=== PATIENT | male | born 1955 | race African-American/Black ===

== ENCOUNTER 2017-05-27 14:28 | Emergency (ER) | payer MEDICAID, OTHER ==
[~2017-05-27] VITALS: Ht 175.3 cm; Wt 158.8 kg
[2017-05-27 14:58] VITALS: BP 150/68
[2017-05-27 16:08] LABS: Hematocrit 45.9 % (41.0-53.0); Hemoglobin 14.4 g/dL (13.5-17.5); Mean Corpuscular Hemoglobin 29.8 pg (28.0-32.0); Mean Corpuscular Hgb Conc. 31.4 g/dL (32.0-36.0); Mean Corpuscular Volume 94.9 fL (80.0-100.0); Platelet Count (auto) 175 10^3/uL (140-450); Red Blood Cells 4.83 10^6/uL (4.5-5.90); Red Cell Distribution Width 17.3 % (11.8-14.3); White Blood Cell 13.9 10^3/uL (4.4-10.8)
[2017-05-27 16:20] LABS: Albumin 3.5 g/dL (3.4-5.0); Calcium 9.2 mg/dL (8.5-10.1); Magnesium 1.8 mg/dL (1.6-2.6); Potassium 4.2 mmol/L (3.5-5.1)
[2017-05-27 16:22] LABS: BUN/Creatinine Ratio 12.8
[2017-05-27 16:24] LABS: Bilirubin, Total 0.5 mg/dL (0.2-1.0); Total Protein 7.9 g/dL (6.4-8.2)
[2017-05-27 16:45] LABS: Basophils % (manual) 0 (0.0-2.0); Blast Cells 0; Eosinophils % (manual) 0 (0-7); Metamyelocytes % 0; Myelocytes % 0; Promyelocytes % 0; Reactive Lymphocytes 0
[2017-05-27 18:05] LABS: Band Neutrophils % (manual) 27; Lymphocytes % (manual) 8 (10.0-50.0); Monocytes % (manual) 8 (0-12)
== END 2017-05-28 00:56 | disposition left against medical advice (07) ==
LOC: ER 14:38
DX: R11.2 Nausea with vomiting, unspecified (principal); R10.9 Unspecified abdominal pain; Z53.21 Procedure and treatment not carried out due to patient leaving prior to being seen by health care provider
CPT/HCPCS: 36415; 80053; 82150; 83690; 83735; 85007; 85027; 93005

== ENCOUNTER 2018-10-23 09:11 | Inpatient (IN) | payer MEDICAID | END 2018-10-24 17:50 | disposition home or self-care (01) | LOC: ER 09:11 → TELE-EAST 13:15 | DX: K80.20 Calculus of gallbladder without cholecystitis without obstruction (principal); I13.0 Hypertensive heart and chronic kidney disease with heart failure and stage 1 through stage 4 chronic kidney disease, or unspecified chronic kidney disease; I50.9 Heart failure, unspecified; N18.3 Chronic kidney disease, stage 3 (moderate); K86.1 Other chronic pancreatitis ==

== ENCOUNTER 2018-10-29 14:36 | Inpatient (IN) | payer MEDICAID ==
[~2018-10-29] VITALS: Ht 180.3 cm; Wt 156.9 kg
[~2018-10-29 14:36] MED LIST: ACET250T3 PO; ALL300T PO; AMLO5TAB13 PO; ASP81EC PO; ATOR10TA52 PO; CALC0.25 PO; CHLO25TA22 PO; CHOL20007 PO; DOCU100T15 PO; FINA5TAB4 PO; FURO40TA4 PO; HYDR50TA15 PO; INSR100KIT SUBCUT; INSUINJ2 SC; IPRIH INH; ISOS20TA56 PO; MOME100A INH; OMEP20TA PO; TAMS1CAP25 PO
[2018-10-29] MEDS ORDERED: SODIUM CHLORIDE 0.9% 500 ML IVB ONE (14:55)
[2018-10-29] MEDS ORDERED: MORPHINE SULFATE 4 MG/ML SYR/VIAL IV ONE (15:00)
[2018-10-29] MEDS ORDERED: FAMOTIDINE (10MG/ML) 2ML VL IV ONE (15:00)
[2018-10-29] MEDS ORDERED: PROCHLORPERAZINE EDISYLATE 5 MG/ML 2ML VIAL IV ONE (15:00)
[2018-10-29 15:12] LABS: Basophils # (auto) 0.1 uL; Basophils % (auto) 0.6 % (0.0-2.0); Eosinophils # (auto) 0.1 uL; Hematocrit 45.3 % (41.0-53.0); Hemoglobin 14.4 g/dL (13.5-17.5); Lymphocytes # (auto) 1.8 uL; Lymphocytes % (auto) 14.7 % (10.0-50.0); Mean Corpuscular Hemoglobin 28.4 pg (28.0-32.0); Mean Corpuscular Hgb Conc. 31.8 g/dL (32.0-36.0); Mean Corpuscular Volume 89.3 fL (80.0-100.0); Monocytes % (auto) 8.2 % (0.0-12.0); Neutrophils % (auto) 75.5 % (37.0-80.0); Nucleated Red Blood Cells % 0.1 %; Platelet Count (auto) 234 10^3/uL (140-450); Red Blood Cells 5.08 10^6/uL (4.5-5.90); Red Cell Distribution Width 18.6 % (11.8-14.3)
[2018-10-29 15:43] LABS: Alanine Aminotransferase 102 U/L (16-61); Albumin 3.4 g/dL (3.4-5.0); Anion Gap 10 (5-15); Aspartate Aminotransferase 133 U/L (15-37); BUN/Creatinine Ratio 15.3; Blood Urea Nitrogen 29 mg/dL (7-18); Calcium 9.2 mg/dL (8.5-10.1); Carbon Dioxide 25 mmol/L (21-32); Chloride 100 mmol/L (98-107); GFR African American 46 mL/min; GFR Non-African American 38 mL/min; Glucose 139 mg/dL (74-106); Lipase 69 U/L (73-393); Sodium 135 mmol/L (136-145)
[2018-10-29 15:46] LABS: Alkaline Phosphatase 209 U/L (45-117); Bilirubin, Total 1.8 mg/dL (0.2-1.0); Total Protein 7.8 g/dL (6.4-8.2)
[2018-10-29 15:56] LABS: Potassium 2.9 mmol/L (3.5-5.1)
[2018-10-29] MEDS ORDERED: POTASSIUM CHL 20MEQ/100ML 100 ML IV ONE (17:00)
[2018-10-29] MEDS ORDERED: PROMETHAZINE HCL 25 MG/ML 1ML IV PRN (18:00)
[2018-10-29] MEDS ORDERED: MORPHINE SULF INJ 2 MG/ML SYRINGE 1ML IV PRN (18:00)
[2018-10-29] MEDS ORDERED: cefTRIAXone 1GM/50ML D5W 50 ML IV ONE (18:00)
[2018-10-29] MEDS: SODIUM CHLORIDE 0.9% 1,000 ML IV SCH (18:00)
[2018-10-29] MEDS ORDERED: NITROGLYCERIN 0.4 MG SL TAB SL PRN (18:00)
[2018-10-29] MEDS ORDERED: DEXTROSE (50%) 50ML SYRG IV PRN (18:00)
[2018-10-29] MEDS: ACCU-CHEK COMFORT CURVE STRIP VI SCH (18:07)
[2018-10-29] MEDS: InsuLIN REG 1unit/0.01ml Soln (100units/ml) SC SCH (18:09)
--- NOTE | 2018-10-29 19:43 | NUR ---
MS admit from ER YANIRADANIELLE admitted to [facility] after hand off tool received. Patient oriented to primary RN, unit, room, bed, and unit policies regarding patient care and visiting hours. Patient weighed by bedscale and encouraged to call if they need something. All questions and concerns addressed, patient verbalized understanding. Patient complained of mild pain to abdomen tolerable at this time.
--- NOTE | 2018-10-29 19:45 | NUR ---
Home medication reviewed/confirmed by patient.
[2018-10-29] MEDS: MORPHINE SULFATE 4 MG/ML SYR/VIAL IV PRN (22:25)
[2018-10-29] MEDS: FAMOTIDINE (10MG/ML) 2ML VL IV SCH (22:25)
[2018-10-29] MEDS: metroNIDAZOLE 500MG/100ML 100 ML IV SCH (22:25)
--- NOTE | 2018-10-29 22:25 | NUR ---
Patient complained of severe pain to mid epigastric area of the abdomen. Will administer pain medication as ordered.
--- NOTE | 2018-10-30 | NUR ---
Blood sugar level taken at 185mg/dl 3 units administered per ss. Patient with no s/s of hyperglycemia, will continue to monitor.
--- NOTE | 2018-10-30 | NUR ---
Patient instructed nurse to call spouse, Cuca at [phone] password provided with patient's authorization. Patient update given. Spouse verbalized understanding and appreciation.
[2018-10-30] MEDS: InsuLIN REG 1unit/0.01ml Soln (100units/ml) SC SCH ×4 (00:11→17:42)
[2018-10-30] MEDS: ACCU-CHEK COMFORT CURVE STRIP VI SCH ×4 (00:11→17:42)
--- NOTE | 2018-10-30 00:15 | NUR ---
MRSA nares Patient last hospitalization just a week ago. MRSA nares swab obtained and sent to lab via bullet.
[2018-10-30] MEDS: SODIUM CHLORIDE 0.9% 1,000 ML IV SCH (04:35)
--- NOTE | 2018-10-30 04:50 | NUR ---
UA specimen bottle at bedside. Instruction given to call nurse when sample available. Pt verbalized understanding.
[2018-10-30 05:00] VITALS: BP 139/71
[2018-10-30] MEDS: metroNIDAZOLE 500MG/100ML 100 ML IV SCH ×3 (05:19→21:44)
[2018-10-30] MEDS: MORPHINE SULFATE 4 MG/ML SYR/VIAL IV PRN ×2 (05:20→22:50)
[2018-10-30 06:05] LABS: Basophils # (auto) 0 uL; Basophils % (auto) 0.2 % (0.0-2.0); Eosinophils # (auto) 0.1 uL; Eosinophils % (auto) 1.1 % (0.0-7.0); Hematocrit 44.6 % (41.0-53.0); Hemoglobin 14.4 g/dL (13.5-17.5); Lymphocytes # (auto) 1.6 uL; Lymphocytes % (auto) 14.5 % (10.0-50.0); Mean Corpuscular Hemoglobin 28.8 pg (28.0-32.0); Mean Corpuscular Hgb Conc. 32.2 g/dL (32.0-36.0); Mean Corpuscular Volume 89.3 fL (80.0-100.0); Monocytes # (auto) 1.3 uL; Monocytes % (auto) 12.4 % (0.0-12.0); Neutrophils # (auto) 7.7 uL; Neutrophils % (auto) 71.8 % (37.0-80.0); Nucleated Red Blood Cells % 0.1 %; Platelet Count (auto) 217 10^3/uL (140-450); Red Blood Cells 4.99 10^6/uL (4.5-5.90); Red Cell Distribution Width 18.7 % (11.8-14.3); White Blood Cell 10.8 10^3/uL (4.4-10.8)
[2018-10-30 06:22] LABS: Amylase 76 U/L (25-115); Lipase 144 U/L (73-393); Potassium 3.2 mmol/L (3.5-5.1)
[2018-10-30 06:37] LABS: Albumin 3.1 g/dL (3.4-5.0); BUN/Creatinine Ratio 13.6; Bilirubin, Total 4.1 mg/dL (0.2-1.0); Total Protein 7.3 g/dL (6.4-8.2)
[2018-10-30 07:59] LABS: Urine WBC None Seen /hpf (0 - 3)
[2018-10-30 08:04] VITALS: BP 151/76
[2018-10-30 08:37] LABS: Urine Bacteria NONE SEEN /hpf (None Seen); Urine Blood Negative /uL (Negative); Urine Hyaline Cast FEW /lpf (0 - 2); Urine Specific Gravity 1.013 (1.001-1.035)
[2018-10-30] MEDS: FAMOTIDINE (10MG/ML) 2ML VL IV SCH ×2 (09:34→21:44)
[2018-10-30] MEDS: cefTRIAXone 1GM/50ML D5W 50 ML IV SCH (09:34)
--- NOTE | 2018-10-30 10:30 | NUR ---
Opening Shift Note Assumed care of patient, awake and alert. No S/S of distress/SOB or pain. Instructed on POC and to call for assist PRN, will continue to monitor for changes Q1hr and PRN.
--- NOTE | 2018-10-30 11:01 | NUR ---
Dr. Becker at bedside discussed with patient and made aware of patient is too big and cannot get in to ERCP machine. Dr. Dex mckeon.
--- NOTE | 2018-10-30 11:10 | NUR ---
Received a call from Dr. Kowalski with new orders noted and carried out.
[2018-10-30 13:00] VITALS: BP 158/74
[2018-10-30] MEDS: D5W/LACTATED RINGERS 1,000 ML IV SCH ×2 (13:31→23:11)
--- NOTE | 2018-10-30 14:30 | NUR ---
Marichuy HOANG (cardio) at bedside.
--- NOTE | 2018-10-30 14:48 | NUR ---
Dr. Kowalski at bedside.
[2018-10-30 17:07] VITALS: BP 156/73
--- NOTE | 2018-10-30 20:00 | NUR ---
open note assumed care of pt. upon entering room, pt awake and alert. no complaints of pain, no distress noted. pt updated on plan of care. no additional questions at this time. pt call light in reach, encouraged to call as needed. will round q1hr and prn.
[2018-10-30 22:00] VITALS: BP 156/66
[2018-10-30] MEDS ORDERED: HYDR50TA15 PO (22:29)
[2018-10-30] MEDS ORDERED: AMLO5TAB13 PO (22:29)
[2018-10-30] MEDS ORDERED: FURO40TA PO (22:29)
--- NOTE | 2018-10-30 22:30 | NUR ---
paged hospitalist NATALYA ontiveros notified of pt increased BP and lack of medication despite med rec indicating associated HTN meds being taken at home. NATALYA Ontiveros gave orders to restart norvasc 10mg qd, lasix 40mg bid, hydralazine 50mg bid; give one dose hydralazine now.
[2018-10-30] MEDS: hydrALAZINE HCL 25 MG TAB PO SCH (22:50)
[2018-10-31] MEDS: MORPHINE SULFATE 4 MG/ML SYR/VIAL IV PRN ×2 (00:19→09:34)
[2018-10-31] MEDS: InsuLIN REG 1unit/0.01ml Soln (100units/ml) SC SCH ×4 (00:20→17:31)
[2018-10-31] MEDS: ACCU-CHEK COMFORT CURVE STRIP VI SCH ×4 (00:20→17:31)
[2018-10-31 05:00] VITALS: BP 138/67
[2018-10-31] MEDS ORDERED: FUROSEMIDE 20 MG TAB PO SCH (06:00)
[2018-10-31] MEDS: metroNIDAZOLE 500MG/100ML 100 ML IV SCH ×3 (06:02→21:49)
[2018-10-31 06:44] LABS: Albumin 2.9 g/dL (3.4-5.0)
[2018-10-31 06:48] LABS: Bilirubin, Direct 4.6 mg/dL (0-0.2); Bilirubin, Total 5.3 mg/dL (0.2-1.0)
[2018-10-31 09:00] VITALS: BP 124/79
[2018-10-31] MEDS: D5W/LACTATED RINGERS 1,000 ML IV SCH (09:00)
[2018-10-31] MEDS: FAMOTIDINE (10MG/ML) 2ML VL IV SCH (09:32)
[2018-10-31] MEDS: cefTRIAXone 1GM/50ML D5W 50 ML IV SCH (09:32)
[2018-10-31] MEDS: hydrALAZINE HCL 25 MG TAB PO SCH ×2 (09:33→21:50)
[2018-10-31] MEDS: amLODIPine BESYLATE 5 MG TAB PO SCH (09:33)
[2018-10-31] MEDS ORDERED: POTASSIUM EFFERVESENT TAB 25 MEQ PO ONE (10:30)
[2018-10-31 11:00] LABS: Phosphorus 2.1 mg/dL (2.5-4.90); Uric Acid 7.7 mg/dL (3.5-7.2)
[2018-10-31] MEDS: FINASTERIDE 5 MG TAB PO SCH (11:17)
[2018-10-31] MEDS: ISOSORBIDE DINITRATE 10 MG TAB PO SCH (11:17)
[2018-10-31 13:00] VITALS: BP 128/62
[2018-10-31] MEDS: TAMSULOSIN HYDROCHLORIDE 0.4 MG CAP PO SCH (18:00)
[2018-10-31] MEDS: INSULIN LANTUS (GLARGINE) 1 /0.01ml (100units/ml) SC SCH (21:50)
[2018-10-31 22:00] VITALS: BP 152/76
[2018-11-01] MEDS: ACCU-CHEK COMFORT CURVE STRIP VI SCH ×4 (00:09→17:37)
[2018-11-01] MEDS: InsuLIN REG 1unit/0.01ml Soln (100units/ml) SC SCH ×4 (00:09→17:37)
[2018-11-01] MEDS: MORPHINE SULFATE 4 MG/ML SYR/VIAL IV PRN ×3 (05:31→15:57)
[2018-11-01 05:32] VITALS: BP 152/74
[2018-11-01] MEDS: metroNIDAZOLE 500MG/100ML 100 ML IV SCH ×3 (05:36→21:59)
[2018-11-01 06:35] LABS: Calcium 8.5 mg/dL (8.5-10.1)
[2018-11-01] MEDS: INSULIN LANTUS (GLARGINE) 1 /0.01ml (100units/ml) SC SCH ×2 (06:35→22:10)
[2018-11-01 06:38] LABS: Albumin 2.7 g/dL (3.4-5.0); BUN/Creatinine Ratio 10.6
[2018-11-01 06:40] LABS: Bilirubin, Total 4.4 mg/dL (0.2-1.0); Total Protein 6.9 g/dL (6.4-8.2)
[2018-11-01 09:00] VITALS: BP 153/81
--- NOTE | 2018-11-01 09:00 | NUR ---
Opening Shift Note Assumed care of patient, awake and alert, oriented x4 and verbally responsive. Respiratory even and unlabored. No S/S of distress/SOB or pain. Skin is warm and dry to touch, no s/s of hyperglycemia and hypoglycemia noted. Instructed on POC and to call for assist PRN, will continue to monitor for changes Q1hr and PRN.
[2018-11-01] MEDS: hydrALAZINE HCL 25 MG TAB PO SCH ×2 (10:17→22:00)
[2018-11-01] MEDS: amLODIPine BESYLATE 5 MG TAB PO SCH (10:17)
[2018-11-01] MEDS: FUROSEMIDE 40 MG TAB PO SCH (10:17)
[2018-11-01] MEDS: FINASTERIDE 5 MG TAB PO SCH (10:18)
[2018-11-01] MEDS: ISOSORBIDE DINITRATE 10 MG TAB PO SCH (10:18)
[2018-11-01] MEDS: cefTRIAXone 1GM/50ML D5W 50 ML IV SCH (10:18)
[2018-11-01] MEDS ORDERED: D5W 5% IV ONE (10:45)
[2018-11-01] MEDS ORDERED: POTASSIUM PHOSPHATE IV ONE (10:45)
--- NOTE | 2018-11-01 11:42 | NUR ---
Nutrition Assessment Notes please see attached link for complete assessment Est. Needs ABW [id number] kcal (17-20 kcal/kgBW), 92-115 gms pro (0.8-1.0 gms/kgABW). Will continue to monitor pertinent labs and reassess nutrient need prn Addendum: 11/01/18 at [address] Sánchez RD Amended: Links added.
[2018-11-01 13:00] VITALS: BP 131/71
[2018-11-01] MEDS: POTASSIUM CHL 20 Meq TABLET PO SCH ×2 (14:18→18:36)
--- NOTE | 2018-11-01 16:00 | NUR ---
PT REPORTS THAT HE IS DOING WELL AND DOES NOT NEED P.T. INTERVENTION.
[2018-11-01] MEDS: TAMSULOSIN HYDROCHLORIDE 0.4 MG CAP PO SCH (18:35)
--- NOTE | 2018-11-01 20:00 | NUR ---
OPENING SHIFT NOTE: PATIENT RESTING IN BED WITH NO CURRENT COMPLAINTS OF PAIN OR DISCOMFORT. HE IS ON ROOM AIR AND AMBULATORY WITHOUT ASSIST. HE'S AWARE OF HIS PROCEDURE TOMORROW AND THAT HE IS NPO AFTER MIDNIGHT. WILL CONTINUE TO MONITOR.
[2018-11-01 22:04] VITALS: BP 142/79
[2018-11-02] MEDS: ACCU-CHEK COMFORT CURVE STRIP VI SCH ×4 (00:16→17:50)
[2018-11-02] MEDS: MORPHINE SULFATE 4 MG/ML SYR/VIAL IV PRN ×2 (03:07→09:41)
[2018-11-02 05:38] VITALS: BP 138/80
[2018-11-02] MEDS: metroNIDAZOLE 500MG/100ML 100 ML IV SCH ×3 (05:51→21:40)
[2018-11-02] MEDS: InsuLIN REG 1unit/0.01ml Soln (100units/ml) SC SCH ×4 (06:00→17:51)
[2018-11-02 06:13] LABS: Basophils # (auto) 0.2 uL; Basophils % (auto) 1.6 % (0.0-2.0); Eosinophils # (auto) 0.2 uL; Eosinophils % (auto) 1.8 % (0.0-7.0); Hematocrit 40.4 % (41.0-53.0); Hemoglobin 13.2 g/dL (13.5-17.5); Lymphocytes # (auto) 1.4 uL; Lymphocytes % (auto) 10.2 % (10.0-50.0); Mean Corpuscular Hemoglobin 28.7 pg (28.0-32.0); Mean Corpuscular Hgb Conc. 32.6 g/dL (32.0-36.0); Mean Corpuscular Volume 87.9 fL (80.0-100.0); Monocytes # (auto) 0.9 uL; Monocytes % (auto) 6.6 % (0.0-12.0); Neutrophils # (auto) 10.5 uL; Neutrophils % (auto) 79.8 % (37.0-80.0); Platelet Count (auto) 183 10^3/uL (140-450); Red Blood Cells 4.59 10^6/uL (4.5-5.90); Red Cell Distribution Width 18.6 % (11.8-14.3); White Blood Cell 13.2 10^3/uL (4.4-10.8)
[2018-11-02] MEDS: INSULIN LANTUS (GLARGINE) 1 /0.01ml (100units/ml) SC SCH ×2 (06:27→22:06)
[2018-11-02 06:36] LABS: Albumin 2.6 g/dL (3.4-5.0); Calcium 8.5 mg/dL (8.5-10.1); Potassium 3.4 mmol/L (3.5-5.1)
[2018-11-02 06:40] LABS: INR 1.03 (0.9-1.15); Partial Thromboplastin Time 32.3 sec (23.64-32.05)
[2018-11-02 06:41] LABS: BUN/Creatinine Ratio 11.7; Total Protein 6.8 g/dL (6.4-8.2)
[2018-11-02 07:27] VITALS: BP 140/72
[2018-11-02 08:02] VITALS: BP 140/72
[2018-11-02] MEDS: cefTRIAXone 1GM/50ML D5W 50 ML IV SCH (09:41)
[2018-11-02] MEDS: amLODIPine BESYLATE 5 MG TAB PO SCH (09:42)
[2018-11-02] MEDS: FUROSEMIDE 40 MG TAB PO SCH (09:42)
[2018-11-02] MEDS: FINASTERIDE 5 MG TAB PO SCH (09:43)
[2018-11-02] MEDS: hydrALAZINE HCL 25 MG TAB PO SCH ×2 (09:43→21:41)
[2018-11-02] MEDS: ISOSORBIDE DINITRATE 10 MG TAB PO SCH (09:50)
[2018-11-02] MEDS ORDERED: POTASSIUM PHOSPHATE 22 MEQ in SODIUM CHL 0.9% 100 ML IV ONE (10:15)
[2018-11-02 12:10] VITALS: BP 137/63
--- NOTE | 2018-11-02 13:25 | NUR ---
Patient transferred to pre op for ERCP.
--- NOTE | 2018-11-02 14:50 | NUR ---
Patient back in room. Per [employer], patient needs ECHO prior to ERCP and they will try again tomorrow.
[2018-11-02] MEDS ORDERED: MORPHINE SULFATE 4 MG/ML SYR/VIAL IV PRN (15:45)
[2018-11-02] MEDS ORDERED: MORPHINE SULF INJ 2 MG/ML SYRINGE 1ML IV PRN (16:00)
[2018-11-02 17:03] VITALS: BP 137/80
[2018-11-02] MEDS: TAMSULOSIN HYDROCHLORIDE 0.4 MG CAP PO SCH (17:51)
[2018-11-02 22:00] VITALS: BP 144/71
[2018-11-03] MEDS: MORPHINE SULFATE 4 MG/ML SYR/VIAL IV PRN ×2 (02:50→11:44)
[2018-11-03 05:00] VITALS: BP 137/72
[2018-11-03] MEDS: InsuLIN REG 1unit/0.01ml Soln (100units/ml) SC SCH ×5 (06:00→23:49)
[2018-11-03] MEDS: ACCU-CHEK COMFORT CURVE STRIP VI SCH ×5 (06:00→23:49)
[2018-11-03] MEDS: metroNIDAZOLE 500MG/100ML 100 ML IV SCH ×3 (06:30→22:00)
[2018-11-03] MEDS: INSULIN LANTUS (GLARGINE) 1 /0.01ml (100units/ml) SC SCH ×2 (06:55→22:01)
[2018-11-03 07:15] LABS: Potassium 3.5 mmol/L (3.5-5.1)
[2018-11-03 07:24] LABS: Albumin 2.5 g/dL (3.4-5.0); BUN/Creatinine Ratio 13.2; Bilirubin, Total 1.9 mg/dL (0.2-1.0); Calcium 8.6 mg/dL (8.5-10.1); Phosphorus 2.4 mg/dL (2.5-4.90); Total Protein 6.9 g/dL (6.4-8.2)
--- NOTE | 2018-11-03 07:50 | NUR ---
Opening Shift Note Assumed care of patient, awake and alert, talking on phone. No S/S of distress/SOB or pain. Instructed on POC and to call for assist PRN, will continue to monitor for changes Q1hr and PRN.
[2018-11-03] MEDS ORDERED: GIVE UN DILUTED IV STA (08:22)
[2018-11-03] MEDS ORDERED: ADENOSINE IV STA (08:22)
[2018-11-03 08:44] VITALS: BP 143/76
--- NOTE | 2018-11-03 08:45 | NUR ---
Stress Test Patient left unit in wheelchair with water technician for stress test.
[2018-11-03 08:50] VITALS: BP 141/77
--- NOTE | 2018-11-03 09:20 | NUR ---
On-Unit Patient returned to unit after completing 2nd part of stress test. Nuc Med to call for 3rd part of stress test.
[2018-11-03] MEDS: cefTRIAXone 1GM/50ML D5W 50 ML IV SCH (09:32)
[2018-11-03] MEDS: FINASTERIDE 5 MG TAB PO SCH (09:34)
[2018-11-03] MEDS: amLODIPine BESYLATE 5 MG TAB PO SCH (09:34)
[2018-11-03] MEDS: hydrALAZINE HCL 25 MG TAB PO SCH ×2 (09:34→22:00)
[2018-11-03] MEDS: ISOSORBIDE DINITRATE 10 MG TAB PO SCH (09:34)
[2018-11-03] MEDS: FUROSEMIDE 40 MG TAB PO SCH (09:34)
[2018-11-03 11:58] VITALS: BP 149/74
[2018-11-03] MEDS ORDERED: POTASSIUM PHOSPHATE 44 MEQ in D5W 5% 250 ML IV ONE (12:15)
--- NOTE | 2018-11-03 12:51 | NUR ---
ERCP Left message for Dr. Escamilla regarding ERCP for the patient. He is NPO and pending procedure. Cardiac clearance was already completed 10/30.
--- NOTE | 2018-11-03 14:04 | NUR ---
Stress test result. As per [facility]. Stress test images already sent to Dr. Tafoya to be read.
--- NOTE | 2018-11-03 15:58 | NUR ---
Nutrition Follow-up Notes Wt.: 153.4 kg as of 11/02/18. Pt's asleep, no immediate family member at bedside when rounded this morning. Pt's no signs of distress, NPO earlier, noted likely to resume on Consistent Carb with active order at this time and for Cardiology consult. Est. Needs ABW [id number] kcal (17-20 kcal/kgBW), 92-115 gms pro (0.8-1.0 gms/kgABW). Will continue to monitor pertinent labs and reassess nutrient need prn Labs: Gluc 159 H, BUN 22 H, Cr 1.36 H, Phos 2.4 H, Tot mildred 1.9 H, ALP 273 H, Alb 2.5 L Skin: Medardo scale 19, low risk, skin intact per will call clerk. GI: Pt's no bowel activity since 10/29/18 will call clerk. PES: Altered nutrition related lab values r/t current/chronic medical condition aeb elev RFT hyperbil, mod hypoalb, hyperglycemia, elev A1C Obesity r/t food intake more than body requirement aeb 196% IBW, BMI 47.2 kg/m2 and increased body adiposity Will continue to monitor NPO status/PO intake, skin status, pertinent labs and weight trend. F/u in 3 to 5 days. Rec.: 1.) Consider to resume oral diet (Consistent Standard Carb: 60 gms/meal,Cardiac: 2 gms Na, Low Chol, Low Fat diet) when medically appropriate. 2.) If Albumin level continues trending down, consider Prostat 1 pkt BID. 3.) Continue close supervision during meals. 4.) Refer pt to CDE/RD for further nutrition education and weight monitoring upon discharge. 5.) Continue current plan of care.
--- NOTE | 2018-11-03 16:24 | NUR ---
ERCP Received a call from Dr. Escamilla regarding ERCP, as per doctor obtain consent for the ERCP from patient. Keep pt NPO after midnight and place pt on a clear liquid diet for now.
[2018-11-03 16:36] VITALS: BP 122/63
--- NOTE | 2018-11-03 17:22 | NUR ---
Stress Test Results and Cardiology Clearance for ERCP Received phone call from [employer] Dr. Tafoya stating that Stress test showed no ischemia, normal ejection fraction of 56%, patient is cleared for ERCP. Will put in communication order.
[2018-11-03] MEDS: TAMSULOSIN HYDROCHLORIDE 0.4 MG CAP PO SCH (18:04)
--- NOTE | 2018-11-03 20:00 | NUR ---
Opening Shift Note Assumed care of patient, awake and alert and oriented x 4. No S/S of distress/SOB or pain. Patient is on room air and ambulating down hallway and back q4hr by self, tolerating well per patient. Instructed on POC and to call for assist PRN, bed in lowest locked position, side rails up x 2, will continue to monitor for changes Q1hr and PRN.
[2018-11-03 21:43] VITALS: BP 135/65
[2018-11-04 05:33] VITALS: BP 136/68
[2018-11-04] MEDS: InsuLIN REG 1unit/0.01ml Soln (100units/ml) SC SCH ×3 (06:00→17:58)
[2018-11-04] MEDS: metroNIDAZOLE 500MG/100ML 100 ML IV SCH ×3 (06:27→22:08)
[2018-11-04 06:28] LABS: Basophils # (auto) 0 uL; Basophils % (auto) 0.3 % (0.0-2.0); Eosinophils # (auto) 0.4 uL; Eosinophils % (auto) 4.2 % (0.0-7.0); Hematocrit 37.2 % (41.0-53.0); Hemoglobin 12.3 g/dL (13.5-17.5); Lymphocytes # (auto) 1.4 uL; Lymphocytes % (auto) 12.9 % (10.0-50.0); Mean Corpuscular Hemoglobin 28.9 pg (28.0-32.0); Mean Corpuscular Volume 87.8 fL (80.0-100.0); Monocytes % (auto) 9.5 % (0.0-12.0); Neutrophils # (auto) 7.8 uL; Neutrophils % (auto) 73.1 % (37.0-80.0); Platelet Count (auto) 178 10^3/uL (140-450); Red Blood Cells 4.24 10^6/uL (4.5-5.90); Red Cell Distribution Width 19.2 % (11.8-14.3); White Blood Cell 10.7 10^3/uL (4.4-10.8)
[2018-11-04] MEDS: ACCU-CHEK COMFORT CURVE STRIP VI SCH ×3 (06:31→17:58)
[2018-11-04] MEDS: INSULIN LANTUS (GLARGINE) 1 /0.01ml (100units/ml) SC SCH ×2 (06:34→22:09)
[2018-11-04 06:41] LABS: Albumin 2.6 g/dL (3.4-5.0); Calcium 8.6 mg/dL (8.5-10.1); Potassium 3.2 mmol/L (3.5-5.1)
[2018-11-04 06:46] LABS: BUN/Creatinine Ratio 15.4; Bilirubin, Total 1.6 mg/dL (0.2-1.0)
[2018-11-04 06:51] LABS: INR 1.01 (0.9-1.15); Partial Thromboplastin Time 35.7 sec (23.64-32.05)
--- NOTE | 2018-11-04 07:07 | NUR ---
CLOSING SHIFT NOTE Patient resting in bed, awaiting procedure. No acute s/s of distress, pain or SOB noted. Patient is on room air and ambulatory. Bed in lowest locked position, side rails up x 2, call light within reach. Endorsed care to dayshift rn.
[2018-11-04] MEDS ORDERED: SUCCINYLCHOLINE CHLORIDE 20 MG/ML 10ML VIAL IV ONE (07:28)
--- NOTE | 2018-11-04 07:32 | NUR ---
Opening Shift Note Assumed care of patient, awake and alert. No S/S of distress/SOB or pain. Instructed on POC and to call for assist PRN, will continue to monitor for changes Q1hr and PRN. NPO status maintained.
[2018-11-04] MEDS ORDERED: SODIUM CHLORIDE LOCK 10 ML ONE (07:34)
[2018-11-04] MEDS ORDERED: LIDOCAINE HCL 2% TOP JELLY 5ML TOP ONE (07:34)
[2018-11-04] MEDS ORDERED: MIDAZOLAM HCL 1MG/1ML-2 ML VIAL ONE (07:34)
[2018-11-04] MEDS ORDERED: fentaNYL CITRATE 100 MCG/2 ML VL ONE ×2 (07:34→08:50)
[2018-11-04] MEDS ORDERED: LIDOCAINE 2% (LOCAL ANESTH.) PF 5ml SDV ONE (07:34)
[2018-11-04] MEDS ORDERED: PROPOFOL 10 MG/ML 20 ML IV ONE ×3 (07:34→09:57)
[2018-11-04] MEDS ORDERED: ROCURONIUM 10MG/ML 10ML VIAL IV ONE (07:34)
[2018-11-04] MEDS ORDERED: ONDANSETRON HCL 4 MG/2 ML VIAL ONE (07:34)
--- NOTE | 2018-11-04 07:40 | NUR ---
Pre-op Patient left unit for pre-op. No obvious distress noted at this time.
[2018-11-04] MEDS ORDERED: IOHEXOL 300 MG/ML 100ML BOTTLE IJ ONE (08:30)
[2018-11-04 09:00] VITALS: BP 146/75
[2018-11-04] MEDS ORDERED: GLUCAGON HYDROCHLORIDE (RDNA) 1 MG VIAL ONE (09:38)
[2018-11-04] MEDS ORDERED: LIDOCAINE 2% JELLY 11ml (GLYDO) ONE (09:42)
[2018-11-04] MEDS: hydrALAZINE HCL 25 MG TAB PO SCH ×2 (10:00→22:07)
[2018-11-04] MEDS ORDERED: HYDROmorphone HCL 2 MG/ML VL IV PRN (10:15)
[2018-11-04] MEDS ORDERED: METOCLOPRAMIDE HCL 5MG/ml INJ 2ml VIAL IV ONE (10:15)
[2018-11-04] MEDS ORDERED: ACCU-CHEK COMFORT CURVE STRIP VI ONE (10:15)
--- NOTE | 2018-11-04 11:38 | NUR ---
Patient returned to unit from PACU awake but very drowsy. No complaints of pain/ SOB. Call light placed within reach and patient was encouraged to call for assistance. Bed alarm on for safety.
[2018-11-04] MEDS: POTASSIUM CHL 20MEQ/100ML 100 ML IV SCH ×2 (11:45→12:24)
--- NOTE | 2018-11-04 11:51 | NUR ---
Paged Dr. Becker, awaiting call back.
--- NOTE | 2018-11-04 11:53 | NUR ---
Received call back from Dr. Becker. Informed him that as per report they were unable to visualize common bile duct. He stated that patient needs to be transferred to a higher level of care. I will call and notify Dr. Kowalski.
--- NOTE | 2018-11-04 11:57 | NUR ---
Left voice mail for Dr. Kowalski, informing him of Dr. Becker's response that patient needs to be transferred to a higher level of care.
[2018-11-04] MEDS: cefTRIAXone 1GM/50ML D5W 50 ML IV SCH (12:15)
[2018-11-04] MEDS: amLODIPine BESYLATE 5 MG TAB PO SCH (12:25)
[2018-11-04] MEDS: FINASTERIDE 5 MG TAB PO SCH (12:25)
--- NOTE | 2018-11-04 12:30 | NUR ---
No return call from Dr. Kowalski, however he placed social service consult for patient to be transferred to a higher level of care facility.
[2018-11-04] MEDS: ISOSORBIDE DINITRATE 10 MG TAB PO SCH (12:36)
[2018-11-04 12:39] VITALS: BP 126/71
--- NOTE | 2018-11-04 13:04 | NUR ---
I faxed higher level of care order to [facility] and [facility].
[2018-11-04] MEDS: MORPHINE SULFATE 4 MG/ML SYR/VIAL IV PRN (14:01)
--- NOTE | 2018-11-04 14:39 | NUR ---
I spoke with Tania at [facility] transfer center [phone] her with contact information for Dr. Kowalski as well as the nurse's station, she will present it to her MD and let me know if they are able to accept this patient.
[2018-11-04 16:56] VITALS: BP 115/63
--- NOTE | 2018-11-04 17:30 | NUR ---
I spoke with Dee at [facility], authorization for accepting facility is [id number], authorization for transportation is [id number].
--- NOTE | 2018-11-04 17:50 | NUR ---
Bag 2 of potassium not yet administered as the 1st bag was delayed for IV antibiotics. Attempted to get 2nd bag, but unable to pull from [facility]. Pharmacy notified and they will re-place order so it can be pulled.
[2018-11-04] MEDS: TAMSULOSIN HYDROCHLORIDE 0.4 MG CAP PO SCH (17:54)
[2018-11-04] MEDS ORDERED: POTASSIUM CHL 20MEQ/100ML 100 ML IV SCH (18:00)
--- NOTE | 2018-11-04 18:03 | NUR ---
Patient ambulating in room uncomplaining at this time.
--- NOTE | 2018-11-04 19:20 | NUR ---
Shift report given to night warehouse selector RN and contact number to call in report to I provided. Addendum: 11/04/18 at 1925 by SB RODRIGUEZ RN Disregard. Wrong patient.
--- NOTE | 2018-11-04 19:21 | NUR ---
Recalled patient's daughter Zulay at [phone], phone rang once and went to voicemail. Left message for her to call director search marketing strategies RN.
--- NOTE | 2018-11-04 19:30 | NUR ---
Opening Shift Note Assumed care of patient, awake, alert and oriented x 4. Patient on room air, ambulating Q4HR, has urinal at bedside. No S/S of distress/SOB. Instructed on POC and to call for assist PRN, bed in lowest locked position, side rails up x 2, call light within reach, will continue to monitor for changes Q1hr and PRN.
[2018-11-04 20:00] VITALS: BP 127/76
[2018-11-04 22:00] VITALS: BP 127/76
[2018-11-05] MEDS: ACCU-CHEK COMFORT CURVE STRIP VI SCH ×4 (00:01→19:33)
[2018-11-05 05:00] VITALS: BP 137/64
[2018-11-05] MEDS: metroNIDAZOLE 500MG/100ML 100 ML IV SCH ×3 (06:06→22:11)
[2018-11-05] MEDS: InsuLIN REG 1unit/0.01ml Soln (100units/ml) SC SCH ×4 (06:31→19:33)
[2018-11-05 06:33] LABS: Basophils # (auto) 0.1 uL; Basophils % (auto) 0.6 % (0.0-2.0); Eosinophils # (auto) 0.4 uL; Eosinophils % (auto) 3.7 % (0.0-7.0); Hematocrit 34.5 % (41.0-53.0); Hemoglobin 11.5 g/dL (13.5-17.5); Lymphocytes # (auto) 1.4 uL; Lymphocytes % (auto) 14.3 % (10.0-50.0); Mean Corpuscular Hemoglobin 29.4 pg (28.0-32.0); Mean Corpuscular Hgb Conc. 33.2 g/dL (32.0-36.0); Mean Corpuscular Volume 88.6 fL (80.0-100.0); Monocytes # (auto) 0.9 uL; Monocytes % (auto) 9.7 % (0.0-12.0); Neutrophils # (auto) 6.8 uL; Neutrophils % (auto) 71.7 % (37.0-80.0); Platelet Count (auto) 166 10^3/uL (140-450); Red Cell Distribution Width 19.1 % (11.8-14.3); White Blood Cell 9.5 10^3/uL (4.4-10.8)
[2018-11-05 06:34] LABS: Potassium 3.7 mmol/L (3.5-5.1)
[2018-11-05 06:42] LABS: Albumin 2.4 g/dL (3.4-5.0); BUN/Creatinine Ratio 13.1; Bilirubin, Total 1.2 mg/dL (0.2-1.0); Calcium 7.8 mg/dL (8.5-10.1); Total Protein 6.6 g/dL (6.4-8.2)
--- NOTE | 2018-11-05 07:06 | NUR ---
Closing shift note Patient is resting in bed. A&Ox4, ambulating Q4hrs by self, on room air, wears SCD's at night PRN. No acute s/s of distress, SOB or pain. Bed in lowest locked position, side rails up x 2. Call light within reach, endorsed care to dayshift PHONG Swain.
--- NOTE | 2018-11-05 07:28 | NUR ---
Opening Shift Note Assumed care of patient, awake and alert sitting up at the side of bed. No S/S of distress/SOB or pain. Instructed on POC and to callfor assist PRN, will continue to monitor for changes Q1hr and PRN. Patient encouraged to ambulate.
[2018-11-05] MEDS: INSULIN LANTUS (GLARGINE) 1 /0.01ml (100units/ml) SC SCH ×2 (07:31→22:11)
[2018-11-05 08:00] VITALS: BP 136/72
--- NOTE | 2018-11-05 09:24 | NUR ---
I called [facility] transfer center [phone] and spoke with Silvia, she said they are just waiting to hear back from their GI doctor to see if he is willing to accept this patient.
[2018-11-05] MEDS: cefTRIAXone 1GM/50ML D5W 50 ML IV SCH (09:26)
[2018-11-05] MEDS: amLODIPine BESYLATE 5 MG TAB PO SCH (09:27)
[2018-11-05] MEDS: FINASTERIDE 5 MG TAB PO SCH (09:28)
[2018-11-05] MEDS: ISOSORBIDE DINITRATE 10 MG TAB PO SCH (09:28)
[2018-11-05] MEDS: hydrALAZINE HCL 25 MG TAB PO SCH ×2 (09:28→22:11)
[2018-11-05] MEDS: MORPHINE SULFATE 4 MG/ML SYR/VIAL IV PRN ×2 (09:37)
--- NOTE | 2018-11-05 11:15 | NUR ---
Patient transferred from room 214B to room 212A with all personal belongings.
[2018-11-05 12:00] VITALS: BP 121/75
--- NOTE | 2018-11-05 13:05 | NUR ---
Received report from another RN that patient fell as he walked from the shower. The bathroom floor was wet. Patient was assessed and verbalized that he is doing okay. No complaint of pain. Vitals checked and was stable B/P 125/74, P.86. Incident report completed by RN who heard the fall and assisted patient back to bed.
--- NOTE | 2018-11-05 14:00 | NUR ---
Patient in bed uncomplaining. States that he is doing fine. No pain to buttock from fall.
[2018-11-05] MEDS ORDERED: MORPHINE SULFATE 4 MG/ML SYR/VIAL IV PRN ×2 (15:45)
[2018-11-05] MEDS ORDERED: ENOXAPARIN SOD 40 MG/0.4 ML SYRINGE SC ONE (15:45)
[2018-11-05 16:00] VITALS: BP 137/74
[2018-11-05] MEDS ORDERED: MORPHINE SULF INJ 2 MG/ML SYRINGE 1ML IV PRN (16:00)
--- NOTE | 2018-11-05 16:08 | NUR ---
I placed [facility] on will call pending transfer to [facility]-auth number for [facility] is [id number].
[2018-11-05 17:59] LABS: Micro Albumin 29.8 mg/L (0-30.0)
--- NOTE | 2018-11-05 18:23 | NUR ---
Rounding Patient in bed having supper, no complaints at this time.
--- NOTE | 2018-11-05 19:15 | NUR ---
Opening Shift Note Assumed care of patient from dayshift RN. Awake, alert and oriented x 4. Patient is on room air and ambulatory. No S/S of distress/SOB or pain. Patient tolerated regular diet for dinner. Patient has no complaints or pain to buttocks from fall this evening reported from dayshift RN Inga. Instructed on POC and to call for assist PRN, bed in lowest locked position, side rails up x 2, call light within reach, will continue to monitor for changes Q1hr and PRN.
[2018-11-05] MEDS: TAMSULOSIN HYDROCHLORIDE 0.4 MG CAP PO SCH (19:32)
[2018-11-05 20:00] VITALS: BP 133/71
[2018-11-05 22:00] VITALS: BP 133/71
[2018-11-06] MEDS: ACCU-CHEK COMFORT CURVE STRIP VI SCH ×3 (00:26→12:00)
[2018-11-06] MEDS: InsuLIN REG 1unit/0.01ml Soln (100units/ml) SC SCH ×3 (00:27→12:27)
[2018-11-06 05:12] VITALS: BP 129/71
[2018-11-06] MEDS: metroNIDAZOLE 500MG/100ML 100 ML IV SCH (05:52)
[2018-11-06] MEDS: INSULIN LANTUS (GLARGINE) 1 /0.01ml (100units/ml) SC SCH (05:58)
[2018-11-06 06:39] LABS: Albumin 2.4 g/dL (3.4-5.0); Calcium 8.2 mg/dL (8.5-10.1); Potassium 3.6 mmol/L (3.5-5.1)
[2018-11-06 06:42] LABS: BUN/Creatinine Ratio 12.5; Bilirubin, Total 1.1 mg/dL (0.2-1.0); Total Protein 6.7 g/dL (6.4-8.2)
--- NOTE | 2018-11-06 06:54 | NUR ---
Closing note Patient is resting in bed, no acute s/s of SOB, distress or pain. Ambulatory and on room air. Bed in lowest locked position, side rails up x 2, call light within reach. Endorsed care to dayshift RN
--- NOTE | 2018-11-06 07:20 | NUR ---
Opening Shift Note Assumed care of patient, awake and alert. No S/S of distress/SOB or pain. HOB 45 degrees, bed locked at lowest position with side-rails up x2 for safety. Call light on hand, instructed on POC and to call for assist PRN, will continue to monitor for changes Q1hr and PRN.
[2018-11-06 08:00] VITALS: BP_SYST 123; BP_SYST 133; BP_DIAS 69; BP_DIAS 71
--- NOTE | 2018-11-06 09:09 | NUR ---
Transfer back agreement faxed to [facility].
[2018-11-06] MEDS: hydrALAZINE HCL 25 MG TAB PO SCH (09:17)
[2018-11-06] MEDS: FINASTERIDE 5 MG TAB PO SCH (09:17)
[2018-11-06] MEDS: cefTRIAXone 1GM/50ML D5W 50 ML IV SCH (09:18)
[2018-11-06] MEDS: ISOSORBIDE DINITRATE 10 MG TAB PO SCH (09:18)
[2018-11-06] MEDS: amLODIPine BESYLATE 5 MG TAB PO SCH (09:18)
[2018-11-06] MEDS ORDERED: ENOXAPARIN SOD 40 MG/0.4 ML SYRINGE SC SCH (10:00)
--- NOTE | 2018-11-06 10:18 | NUR ---
assessment No needs identified at this time. Addendum: 11/06/18 at 1519 by Trinidad PRESTON Amended: Links added.
--- NOTE | 2018-11-06 11:27 | NUR ---
I received a call from patient's nurse letting me know that patient no longer needs transfer to higher level of care, patient to be discharged home and follow up as an outpatient.
[2018-11-06 11:46] VITALS: BP 146/80
[2018-11-06 12:00] VITALS: BP 146/80
--- NOTE | 2018-11-06 12:00 | NUR ---
Discharge instructions given as ordered. Encourage to follow up with PMD as instructed. All questions and concerns addressed. Patient verbalized understanding. Medication reconciliation form completed and copy given to patient. Home medications held in Pharmacy returned to patient, and needed vaccines given. IV removed with catheter intact, pressure dressing applied. Patient taken to vehicle via wheelchair with all personal belongings, accompanied by staff and family member. No distress noted at time of departure.
== END 2018-11-06 14:49 | disposition home or self-care (01) ==
LOC: ER 14:41 → OVERFLOW 17:48 → CENTRAL 20:07
PROVIDERS: ADMIT Internal Medicine; ATTEND Hospitalist
PROC: BF141ZZ Fluoroscopy of Gallbladder, Bile Ducts and Pancreatic Ducts using Low Osmolar Contrast (ICD-10-PCS; principal; 2018-11-04 08:33)
DX: K80.66 Calculus of gallbladder and bile duct with acute and chronic cholecystitis without obstruction (principal); N17.0 Acute kidney failure with tubular necrosis; E11.21 Type 2 diabetes mellitus with diabetic nephropathy; I13.0 Hypertensive heart and chronic kidney disease with heart failure and stage 1 through stage 4 chronic kidney disease, or unspecified chronic kidney disease; E11.65 Type 2 diabetes mellitus with hyperglycemia; I50.22 Chronic systolic (congestive) heart failure; E66.01 Morbid (severe) obesity due to excess calories; K86.1 Other chronic pancreatitis; E11.22 Type 2 diabetes mellitus with diabetic chronic kidney disease; K82.8 Other specified diseases of gallbladder; R79.89 Other specified abnormal findings of blood chemistry; K44.9 Diaphragmatic hernia without obstruction or gangrene; E87.6 Hypokalemia; J44.9 Chronic obstructive pulmonary disease, unspecified; K76.0 Fatty (change of) liver, not elsewhere classified; E78.5 Hyperlipidemia, unspecified; N18.3 Chronic kidney disease, stage 3 (moderate); E83.39 Other disorders of phosphorus metabolism; Z68.42 Body mass index [BMI] 45.0-49.9, adult; Z79.899 Other long term (current) drug therapy
CPT/HCPCS: 36415; 71045; 74018; 74176; 76001; 76775; 78452; 80053; 80076; 81001; 82043; 82150; 82306; 82570; 82962; 83036; 83690; 83735; 83880; 83970; 84100; 84300; 84484; 84550; 85025; 85610; 85730; 87081; 93005; 93017; 93306; 94761; 96365; 96368; 96375; G0378; J0153; J0330; J0696; J1815; J2001; J2250; J2405; J2704; J3480; J3490; J7060

== ENCOUNTER 2019-03-08 21:24 | Emergency (ER) | payer MEDICARE, MEDICAID ==
[~2019-03-08] VITALS: Ht 180.3 cm; Wt 158.8 kg
[~2019-03-08 21:24] MED LIST changes: -ACET250T3 PO; -AMLO5TAB13 PO; +AMLO5TAB15 PO; -FURO40TA4 PO; -INSR100KIT SUBCUT
[2019-03-08 22:35] LABS: Urine WBC None Seen /hpf (0 - 3)
[2019-03-08 22:45] LABS: Urine Bacteria NONE SEEN /hpf (None Seen); Urine Blood TRACE /uL (Negative); Urine Hyaline Cast FEW /lpf (0 - 2); Urine Specific Gravity 1.016 (1.001-1.035)
[2019-03-08 22:45] LABS: Basophils # (auto) 0 uL; Basophils % (auto) 0.3 % (0.0-2.0); Eosinophils # (auto) 0.1 uL; Eosinophils % (auto) 0.9 % (0.0-7.0); Hematocrit 44.1 % (41.0-53.0); Hemoglobin 14.1 g/dL (13.5-17.5); Lymphocytes # (auto) 0.9 uL; Lymphocytes % (auto) 14.9 % (10.0-50.0); Mean Corpuscular Hemoglobin 29.9 pg (28.0-32.0); Mean Corpuscular Hgb Conc. 32.1 g/dL (32.0-36.0); Mean Corpuscular Volume 93.2 fL (80.0-100.0); Monocytes # (auto) 0.7 uL; Monocytes % (auto) 10.4 % (0.0-12.0); Neutrophils # (auto) 4.7 uL; Neutrophils % (auto) 73.5 % (37.0-80.0); Nucleated Red Blood Cells % 0.1 %; Platelet Count (auto) 195 10^3/uL (140-450); Red Blood Cells 4.73 10^6/uL (4.5-5.90); Red Cell Distribution Width 16.7 % (11.8-14.3); White Blood Cell 6.4 10^3/uL (4.4-10.8)
[2019-03-08 23:00] LABS: Albumin 3.5 g/dL (3.4-5.0); Calcium 8.5 mg/dL (8.5-10.1); Potassium 3.8 mmol/L (3.5-5.1)
[2019-03-08 23:03] LABS: BUN/Creatinine Ratio 12.3; Bilirubin, Total 0.8 mg/dL (0.2-1.0); Total Protein 7.5 g/dL (6.4-8.2)
[2019-03-09] MEDS ORDERED: metroNIDAZOLE 500MG/100ML 100 ML IV ONE (04:30)
[2019-03-09] MEDS ORDERED: ONDANSETRON HCL 4 MG/2 ML VIAL IV ONE (04:30)
[2019-03-09] MEDS ORDERED: SODIUM CHLORIDE 0.9% 1,000 ML IV ONE (04:30)
[2019-03-09] MEDS ORDERED: cefTRIAXone 1GM/50ML D5W 50 ML IV ONE (04:30)
[2019-03-09 05:14] VITALS: BP 153/71
== END 2019-03-09 06:43 | disposition home or self-care (01) ==
LOC: ER 21:26
DX: K52.9 Noninfective gastroenteritis and colitis, unspecified (principal); I13.0 Hypertensive heart and chronic kidney disease with heart failure and stage 1 through stage 4 chronic kidney disease, or unspecified chronic kidney disease; E11.22 Type 2 diabetes mellitus with diabetic chronic kidney disease; N18.9 Chronic kidney disease, unspecified; I50.9 Heart failure, unspecified; J44.9 Chronic obstructive pulmonary disease, unspecified; E78.00 Pure hypercholesterolemia, unspecified; Z79.4 Long term (current) use of insulin; Z79.82 Long term (current) use of aspirin; Z79.899 Other long term (current) drug therapy
CPT/HCPCS: 36415; 80053; 81001; 85025; 96365; 96368; 96375; 99283; J0696; J2405; J3490; J7030

== ENCOUNTER → 2019-05-03 | Outpatient (CLI) | payer MEDICARE, MEDICAID | END | disposition home or self-care (01) | LOC: Rad HDHVI 10:25 | PROVIDERS: ATTEND Internal Medicine Cardiovascular Disease | DX: I35.1 Nonrheumatic aortic (valve) insufficiency (principal); I13.0 Hypertensive heart and chronic kidney disease with heart failure and stage 1 through stage 4 chronic kidney disease, or unspecified chronic kidney disease; E11.22 Type 2 diabetes mellitus with diabetic chronic kidney disease; N18.3 Chronic kidney disease, stage 3 (moderate); I50.9 Heart failure, unspecified | CPT/HCPCS: 93306 ==

== ENCOUNTER → 2019-05-13 | Outpatient (CLI) | payer MEDICARE, MEDICAID ==
[~2019-05-13] VITALS: Ht 182.9 cm; Wt 157.4 kg
[~2019-05-13] MED LIST changes: +ADENOSINE 132 MG in GIVE UN-DILUTED 0 ML IV ONE; +ADENOSINE 90 MG/30 ML INJ IV ONE; +ADENOSINE IV ONE; +GIVE UN DILUTED IV ONE
== END | disposition home or self-care (01) ==
LOC: Rad HDHVI 08:29
PROVIDERS: ATTEND Internal Medicine Cardiovascular Disease
DX: R07.9 Chest pain, unspecified (principal); R42 Dizziness and giddiness; E11.22 Type 2 diabetes mellitus with diabetic chronic kidney disease; I13.0 Hypertensive heart and chronic kidney disease with heart failure and stage 1 through stage 4 chronic kidney disease, or unspecified chronic kidney disease; N18.9 Chronic kidney disease, unspecified; I50.9 Heart failure, unspecified; E78.00 Pure hypercholesterolemia, unspecified
CPT/HCPCS: 78452; 93005; 96374; 96375; A9500; J0153

== ENCOUNTER → 2019-07-08 | Outpatient (CLI) | payer MEDICARE, MEDICAID ==
[~2019-07-08] MED LIST changes: -ADENOSINE 132 MG in GIVE UN-DILUTED 0 ML IV ONE; -ADENOSINE 90 MG/30 ML INJ IV ONE; -ADENOSINE IV ONE; -GIVE UN DILUTED IV ONE
== END | disposition home or self-care (01) ==
LOC: XY 09:24
PROVIDERS: ATTEND Podiatrist
DX: I74.3 Embolism and thrombosis of arteries of the lower extremities (principal); E11.40 Type 2 diabetes mellitus with diabetic neuropathy, unspecified
CPT/HCPCS: 93925

== ENCOUNTER → 2020-03-22 | Outpatient (CLI) | payer MEDICARE, MEDICAID ==
[~2020-03-22] MED LIST changes: -ASP81EC PO; +ASPI-394 PO
== END | disposition home or self-care (01) ==
LOC: Rad HDHVI 08:10
PROVIDERS: ATTEND Internal Medicine Cardiovascular Disease
DX: I08.2 Rheumatic disorders of both aortic and tricuspid valves (principal); I27.21 Secondary pulmonary arterial hypertension; I73.9 Peripheral vascular disease, unspecified; I10 Essential (primary) hypertension
CPT/HCPCS: 93306

== ENCOUNTER 2020-05-30 11:56 | Inpatient (IN) | payer OTHER, MEDICAID ==
[~2020-05-30] VITALS: Ht 180.3 cm; Wt 157.0 kg
[~2020-05-30 11:56] MED LIST changes: +AMLO-489 PO; -AMLO5TAB15 PO; +CHLO25TA2 PO; -CHLO25TA22 PO; +ISOS20TA5 PO; -ISOS20TA56 PO
[2020-05-30] MEDS ORDERED: DexAMETHasone SOD PHOS 10MG/1ML VIAL INJ IV ONE (12:15)
[2020-05-30 12:40] LABS: Basophils # (auto) 0.1 10 ^3/uL (0-0.2); Basophils % (auto) 0.9 % (0.0-2.0); Eosinophils # (auto) 0 10 ^3/uL (0-0.8); Hemoglobin 13.6 g/dL (13.5-17.5); Lymphocytes # (auto) 0.6 10 ^3/uL (0.4-5.4); Lymphocytes % (auto) 8.9 % (10.0-50.0); Mean Corpuscular Hemoglobin 29.4 pg (28.0-32.0); Mean Corpuscular Hgb Conc. 32.4 g/dL (32.0-36.0); Mean Corpuscular Volume 90.7 fL (80.0-100.0); Monocytes # (auto) 0.6 10 ^3/uL (0-1.3); Neutrophils # (auto) 5.3 10 ^3/uL (1.6-8.6); Neutrophils % (auto) 81.2 % (37.0-80.0); Platelet Count (auto) 182 10^3/uL (140-450); Red Blood Cells 4.63 10^6/uL (4.5-5.90); Red Cell Distribution Width 16.6 % (11.8-14.3); White Blood Cell 6.5 10^3/uL (4.4-10.8)
[2020-05-30 13:13] LABS: Lactic Acid w/Reflex 2.5 mmol/L (0.4-2.0)
[2020-05-30 13:15] LABS: Albumin 1.8 g/dL (3.4-5.0); Anion Gap 10 (5-15); Blood Urea Nitrogen 58 mg/dL (7-18); Calcium 7.5 mg/dL (8.5-10.1); Carbon Dioxide 24 mmol/L (21-32); Chloride 100 mmol/L (98-107); Glucose 174 mg/dL (74-106); Magnesium 1.8 mg/dL (1.6-2.6); Potassium 3.5 mmol/L (3.5-5.1); Sodium 134 mmol/L (136-145)
[2020-05-30 13:28] LABS: Alanine Aminotransferase 35 U/L (16-61); Alkaline Phosphatase 88 U/L (45-117); Aspartate Aminotransferase 111 U/L (15-37); BUN/Creatinine Ratio 12.3; Bilirubin, Total 0.5 mg/dL (0.2-1.0); GFR African American 16 mL/min; GFR Non-African American 13 mL/min; Lactate Dehydrogenase 983 U/L (87-241); Total Protein 6.3 g/dL (6.4-8.2)
[2020-05-30 13:52] LABS: CRP High Sensitivity > 19.0 mg/dL (< 0.3)
[2020-05-30] MEDS ORDERED: ONDANSETRON HCL 4 MG/2 ML VIAL IV PRN (16:45)
[2020-05-30] MEDS ORDERED: MORPHINE SULF INJ 2 MG/ML SYRINGE 1ML IV PRN (16:45)
[2020-05-30] MEDS ORDERED: NITROGLYCERIN 0.4 MG SL TAB SL PRN (16:45)
[2020-05-30] MEDS ORDERED: ACETAMINOPHEN 500 MG TAB PO PRN (16:45)
[2020-05-30] MEDS: AZITHROMYCIN 500MG/ 250ML 250 ML IV SCH (16:45)
[2020-05-30] MEDS ORDERED: ALUM & MAG HYDROX-SIMETH LIQ(MAALOX) 30 ML PO PRN (16:45)
[2020-05-30] MEDS ORDERED: DOCUSATE SOD 100 MG CAP PO PRN (16:45)
[2020-05-30] MEDS ORDERED: FUROSEMIDE 20 MG/2 ML VIAL IV ONE (17:00)
[2020-05-30] MEDS ORDERED: hydrALAZINE HCL 20 MG/ML VL IV PRN (17:00)
[2020-05-30] MEDS ORDERED: DEXTROSE (50%) 50ML SYRG IV PRN (17:00)
[2020-05-30] MEDS ORDERED: ENOXAPARIN SOD 40 MG/0.4 ML SYRINGE SC SCH (18:05)
[2020-05-30] MEDS: ACCU-CHEK COMFORT CURVE STRIP VI SCH (18:08)
[2020-05-30] MEDS: InsuLIN REG 1unit/0.01ml Soln (100units/ml) SC SCH (18:12)
[2020-05-30] MEDS: ZINC SULFATE 220mg CAP or TAB PO SCH (18:24)
[2020-05-30] MEDS: CHOLECALCIFEROL (VITD3) 2,000 UNIT CAP/TAB PO SCH (18:24)
[2020-05-30] MEDS: ASCORBIC ACID 1,000 MG TAB PO SCH (18:24)
[2020-05-30] MEDS: BUDESONIDE (INHALATION) 180 MCG IH IN SCH (18:49)
[2020-05-30 19:58] LABS: Urine Bacteria MANY /hpf (None Seen); Urine Blood 2+ /uL (Negative); Urine Specific Gravity 1.016 (1.001-1.035); Urine WBC 51 /hpf (0 - 3); Urine WBC Clumps PRESENT /hpf (None Seen)
[2020-05-31] MEDS: ACCU-CHEK COMFORT CURVE STRIP VI SCH ×5 (00:12→22:41)
[2020-05-31] MEDS: InsuLIN REG 1unit/0.01ml Soln (100units/ml) SC SCH ×5 (00:18→22:45)
[2020-05-31 05:49] LABS: Basophils # (auto) 0 10 ^3/uL (0-0.2); Basophils % (auto) 0.2 % (0.0-2.0); Eosinophils # (auto) 0 10 ^3/uL (0-0.8); Hematocrit 41.7 % (41.0-53.0); Hemoglobin 13.9 g/dL (13.5-17.5); Lymphocytes # (auto) 0.6 10 ^3/uL (0.4-5.4); Lymphocytes % (auto) 12.5 % (10.0-50.0); Mean Corpuscular Hemoglobin 29.5 pg (28.0-32.0); Mean Corpuscular Hgb Conc. 33.2 g/dL (32.0-36.0); Mean Corpuscular Volume 88.7 fL (80.0-100.0); Monocytes # (auto) 0.4 10 ^3/uL (0-1.3); Monocytes % (auto) 7.6 % (0.0-12.0); Neutrophils % (auto) 79.7 % (37.0-80.0); Nucleated Red Blood Cells % 0.1 %; Platelet Count (auto) 201 10^3/uL (140-450); Red Cell Distribution Width 16.3 % (11.8-14.3); White Blood Cell 5.1 10^3/uL (4.4-10.8)
[2020-05-31 06:04] LABS: Albumin 1.8 g/dL (3.4-5.0); Calcium 7.5 mg/dL (8.5-10.1); Potassium 3.7 mmol/L (3.5-5.1)
[2020-05-31 06:06] LABS: BUN/Creatinine Ratio 11.9
[2020-05-31 06:09] LABS: Bilirubin, Total 0.4 mg/dL (0.2-1.0); Total Protein 6.4 g/dL (6.4-8.2)
[2020-05-31] MEDS ORDERED: FUROSEMIDE 20 MG/2 ML VIAL IV SCH (10:00)
[2020-05-31] MEDS: BUDESONIDE (INHALATION) 180 MCG IH IN SCH ×2 (10:00→22:00)
[2020-05-31] MEDS: ASCORBIC ACID 1,000 MG TAB PO SCH (10:33)
[2020-05-31] MEDS: AZITHROMYCIN 500MG/ 250ML 250 ML IV SCH (10:33)
[2020-05-31] MEDS: CHOLECALCIFEROL (VITD3) 2,000 UNIT CAP/TAB PO SCH (10:33)
[2020-05-31] MEDS: ZINC SULFATE 220mg CAP or TAB PO SCH (10:33)
[2020-05-31] MEDS: DexAMETHasone SOD PHOS 10MG/1ML VIAL INJ IV SCH (10:33)
[2020-05-31] MEDS: PANTOPRAZOLE 40 MG TAB PO SCH (10:33)
[2020-05-31] MEDS ORDERED: REMDESIVIR PER PHARMACY 0 ML IV SCH (16:00)
[2020-05-31] MEDS ORDERED: DEXTROSE (50%) 50ML SYRG IV PRN (16:00)
[2020-05-31] MEDS: ERGOCALCIFEROL 50,000 UNIT(1.25MG) CAP PO SCH (17:49)
[2020-05-31] MEDS: DOXYCYCLINE 100 MG TAB/CAP PO SCH (22:40)
[2020-06-01 05:00] VITALS: BP 131/64
[2020-06-01] MEDS: ACCU-CHEK COMFORT CURVE STRIP VI SCH ×4 (06:54→21:39)
[2020-06-01] MEDS: InsuLIN REG 1unit/0.01ml Soln (100units/ml) SC SCH ×4 (07:01→21:43)
[2020-06-01 08:00] VITALS: BP 114/60
[2020-06-01] MEDS ORDERED: SODIUM CHLORIDE 0.9% 1,000 ML IV ONE (09:00)
[2020-06-01 09:18] LABS: Basophils # (auto) 0 10 ^3/uL (0-0.2); Basophils % (auto) 0.2 % (0.0-2.0); Eosinophils # (auto) 0 10 ^3/uL (0-0.8); Hematocrit 40.5 % (41.0-53.0); Hemoglobin 13.6 g/dL (13.5-17.5); Lymphocytes # (auto) 0.7 10 ^3/uL (0.4-5.4); Lymphocytes % (auto) 5.8 % (10.0-50.0); Mean Corpuscular Hemoglobin 29.5 pg (28.0-32.0); Mean Corpuscular Hgb Conc. 33.6 g/dL (32.0-36.0); Mean Corpuscular Volume 87.9 fL (80.0-100.0); Monocytes # (auto) 0.7 10 ^3/uL (0-1.3); Neutrophils # (auto) 10.2 10 ^3/uL (1.6-8.6); Platelet Count (auto) 260 10^3/uL (140-450); Red Blood Cells 4.61 10^6/uL (4.5-5.90); Red Cell Distribution Width 16.1 % (11.8-14.3); White Blood Cell 11.6 10^3/uL (4.4-10.8)
[2020-06-01] MEDS ORDERED: ENOXAPARIN SOD 40 MG/0.4 ML SYRINGE SC SCH (10:00)
[2020-06-01 10:04] LABS: Potassium 3.8 mmol/L (3.5-5.1)
[2020-06-01 10:13] LABS: Albumin 1.6 g/dL (3.4-5.0); BUN/Creatinine Ratio 14.5; Bilirubin, Total 0.4 mg/dL (0.2-1.0); Calcium 7.3 mg/dL (8.5-10.1); Magnesium 2.3 mg/dL (1.6-2.6); Total Protein 6.2 g/dL (6.4-8.2)
[2020-06-01] MEDS ORDERED: SODIUM CHLORIDE 0.9% 250 ML IV ONE (11:15)
[2020-06-01] MEDS: DexAMETHasone SOD PHOS 10MG/1ML VIAL INJ IV SCH (11:44)
[2020-06-01] MEDS: BUDESONIDE (INHALATION) 180 MCG IH IN SCH ×2 (11:44→17:18)
[2020-06-01] MEDS: CHOLECALCIFEROL (VITD3) 2,000 UNIT CAP/TAB PO SCH (11:45)
[2020-06-01] MEDS: PANTOPRAZOLE 40 MG TAB PO SCH (11:45)
[2020-06-01] MEDS: ZINC SULFATE 220mg CAP or TAB PO SCH (11:45)
[2020-06-01] MEDS: ASCORBIC ACID 1,000 MG TAB PO SCH (11:45)
[2020-06-01] MEDS: DOXYCYCLINE 100 MG TAB/CAP PO SCH (11:45)
[2020-06-01] MEDS ORDERED: SODIUM CHL 0.9% 1000 ML BAG XX ONE (12:30)
[2020-06-01] MEDS ORDERED: HEPARIN 1,000 UNITS/ml 1ML VIAL IV ONE ×2 (12:45)
[2020-06-01] MEDS ORDERED: BUMETANIDE 2.5mg/10ml (0.25 mg/ml) INJ IV ONE (13:15)
[2020-06-01] MEDS ORDERED: SODIUM CHLORIDE 0.9% 500 ML IV ONE (13:15)
[2020-06-01] MEDS ORDERED: cefTRIAXone 1GM/50ML D5W 50 ML IV ONE (14:00)
[2020-06-01] MEDS ORDERED: AZITHROMYCIN 500MG/ 250ML 250 ML IV ONE (14:00)
[2020-06-01] MEDS ORDERED: LIDOCAINE HCL 2% TOP JELLY 5ML TOP ONE (14:45)
[2020-06-01] MEDS ORDERED: LIDOCAINE 2% JELLY 11ml (GLYDO) UR ONE (15:00)
[2020-06-01 16:00] VITALS: BP 146/67
[2020-06-01] MEDS: SODIUM CHLORIDE 0.9% 1,000 ML IV SCH (16:05)
[2020-06-01] MEDS ORDERED: REMDESIVIR PER PHARMACY 0 ML IV SCH (16:15)
[2020-06-01] MEDS ORDERED: methylPREDNISolone SOD SUCC 40 MG/ML VL IV ONE (16:30)
[2020-06-01] MEDS ORDERED: diphenhdrAMINE HCL 50 MG/1 ML VL IV ONE (16:30)
[2020-06-01] MEDS ORDERED: ACETAMINOPHEN 650 mg PER 20.3 mL UD PO ONE (16:30)
[2020-06-01] MEDS ORDERED: TOCILIZUMAB 400 MG in SODIUM CHL 0.9% 80 ML IV ONE (17:00)
[2020-06-01] MEDS: ALBUTEROL SULF HFA 90MCG INH 200DOSE IN PRN ×2 (17:18→19:48)
[2020-06-01 18:02] LABS: Hepatitis B Core IgM Negative; Hepatitis C Antibody Negative (Negative)
[2020-06-01] MEDS ORDERED: REMDESIVIR 200 MG in NS 210ml LOADING DOSE ADULT IV ONE (20:30)
[2020-06-01] MEDS: ENOXAPARIN SOD 30 MG/0.3 ML SYRINGE SC SCH (21:39)
[2020-06-02] VITALS: BP_SYST 121; BP_SYST 150; BP_DIAS 63; BP_DIAS 81
[2020-06-02] MEDS: SODIUM CHLORIDE 0.9% 1,000 ML IV SCH ×2 (02:35→17:59)
[2020-06-02 04:40] LABS: Hepatitis A Ab IgM Negative; Hepatitis B Surface Antigen Negative (Negative)
[2020-06-02] MEDS: ACCU-CHEK COMFORT CURVE STRIP VI SCH ×4 (06:34→21:33)
[2020-06-02] MEDS: InsuLIN REG 1unit/0.01ml Soln (100units/ml) SC SCH ×4 (06:41→21:34)
[2020-06-02] MEDS ORDERED: diphenhdrAMINE HCL 50 MG/1 ML VL IV ONE (07:30)
[2020-06-02] MEDS ORDERED: methylPREDNISolone SOD SUCC 40 MG/ML VL IV ONE (07:30)
[2020-06-02] MEDS ORDERED: ACETAMINOPHEN 650 mg PER 20.3 mL UD PO ONE (07:30)
[2020-06-02 08:00] VITALS: BP 143/62
[2020-06-02] MEDS ORDERED: TOCILIZUMAB 400 MG in SODIUM CHL 0.9% 80 ML IV ONE (08:00)
[2020-06-02 09:15] LABS: Potassium 3.8 mmol/L (3.5-5.1)
[2020-06-02 09:26] LABS: Albumin 1.6 g/dL (3.4-5.0); BUN/Creatinine Ratio 15.2; Bilirubin, Total 0.4 mg/dL (0.2-1.0); Calcium 7.1 mg/dL (8.5-10.1); Total Protein 6.4 g/dL (6.4-8.2)
[2020-06-02] MEDS: BUDESONIDE (INHALATION) 180 MCG IH IN SCH ×2 (10:00→20:45)
[2020-06-02] MEDS: ENOXAPARIN SOD 30 MG/0.3 ML SYRINGE SC SCH ×2 (11:38→21:33)
[2020-06-02] MEDS: PANTOPRAZOLE 40 MG TAB PO SCH (11:38)
[2020-06-02] MEDS: CHOLECALCIFEROL (VITD3) 2,000 UNIT CAP/TAB PO SCH (11:38)
[2020-06-02] MEDS: ASCORBIC ACID 1,000 MG TAB PO SCH (11:38)
[2020-06-02] MEDS: ZINC SULFATE 220mg CAP or TAB PO SCH (11:38)
[2020-06-02] MEDS: cefTRIAXone 1GM/50ML D5W 50 ML IV SCH (13:23)
[2020-06-02] MEDS ORDERED: REMDESIVIR 100 MG in SODIUM CHL 0.9% 250 ML IV SCH (15:00)
[2020-06-02 16:00] VITALS: BP 130/45
[2020-06-02] MEDS: AZITHROMYCIN 500MG/ 250ML 250 ML IV SCH (16:15)
[2020-06-02] MEDS: ALBUTEROL SULF HFA 90MCG INH 200DOSE IN PRN (20:45)
[2020-06-03] VITALS: BP_SYST 133; BP_SYST 136; BP_DIAS 60; BP_DIAS 71
[2020-06-03] MEDS: SODIUM CHLORIDE 0.9% 1,000 ML IV SCH ×2 (05:15→18:50)
[2020-06-03] MEDS: ACCU-CHEK COMFORT CURVE STRIP VI SCH ×4 (06:35→22:04)
[2020-06-03] MEDS: InsuLIN REG 1unit/0.01ml Soln (100units/ml) SC SCH ×4 (06:37→22:07)
[2020-06-03] MEDS: ALBUTEROL SULF HFA 90MCG INH 200DOSE IN PRN (07:37)
[2020-06-03 08:00] VITALS: BP 147/74
[2020-06-03 08:51] LABS: Albumin 1.8 g/dL (3.4-5.0); BUN/Creatinine Ratio 15.1; Calcium 7.1 mg/dL (8.5-10.1)
[2020-06-03] MEDS: ZINC SULFATE 220mg CAP or TAB PO SCH (09:12)
[2020-06-03] MEDS: BUDESONIDE (INHALATION) 180 MCG IH IN SCH ×2 (09:12→22:00)
[2020-06-03] MEDS: ASCORBIC ACID 1,000 MG TAB PO SCH (09:12)
[2020-06-03] MEDS: PANTOPRAZOLE 40 MG TAB PO SCH (09:12)
[2020-06-03] MEDS: CHOLECALCIFEROL (VITD3) 2,000 UNIT CAP/TAB PO SCH (09:13)
[2020-06-03] MEDS: cefTRIAXone 1GM/50ML D5W 50 ML IV SCH (09:13)
[2020-06-03] MEDS: ENOXAPARIN SOD 30 MG/0.3 ML SYRINGE SC SCH ×2 (09:13→22:09)
[2020-06-03 09:14] LABS: Bilirubin, Total 0.4 mg/dL (0.2-1.0)
[2020-06-03] MEDS: AZITHROMYCIN 500MG/ 250ML 250 ML IV SCH (11:05)
[2020-06-03 16:00] VITALS: BP 124/67
[2020-06-04] VITALS: BP 136/71
[2020-06-04] MEDS: ALBUTEROL SULF HFA 90MCG INH 200DOSE IN PRN ×3 (00:44→21:37)
[2020-06-04] MEDS: ACCU-CHEK COMFORT CURVE STRIP VI SCH ×4 (06:30→22:04)
[2020-06-04] MEDS: InsuLIN REG 1unit/0.01ml Soln (100units/ml) SC SCH ×4 (06:37→22:05)
[2020-06-04 08:00] VITALS: BP 148/72
[2020-06-04 08:16] LABS: Basophils # (auto) 0 10 ^3/uL (0-0.2); Basophils % (auto) 0.4 % (0.0-2.0); Eosinophils # (auto) 0 10 ^3/uL (0-0.8); Eosinophils % (auto) 0.6 % (0.0-7.0); Hematocrit 38.1 % (41.0-53.0); Hemoglobin 12.6 g/dL (13.5-17.5); Lymphocytes # (auto) 0.9 10 ^3/uL (0.4-5.4); Mean Corpuscular Hemoglobin 29.3 pg (28.0-32.0); Mean Corpuscular Hgb Conc. 33.2 g/dL (32.0-36.0); Mean Corpuscular Volume 88.1 fL (80.0-100.0); Monocytes # (auto) 0.3 10 ^3/uL (0-1.3); Monocytes % (auto) 4.9 % (0.0-12.0); Neutrophils # (auto) 5.6 10 ^3/uL (1.6-8.6); Neutrophils % (auto) 81.1 % (37.0-80.0); Nucleated Red Blood Cells % 0.2 %; Platelet Count (auto) 257 10^3/uL (140-450); Red Blood Cells 4.32 10^6/uL (4.5-5.90); Red Cell Distribution Width 16.5 % (11.8-14.3)
[2020-06-04 08:29] LABS: Albumin 1.7 g/dL (3.4-5.0); Calcium 6.6 mg/dL (8.5-10.1); Potassium 3.8 mmol/L (3.5-5.1)
[2020-06-04 08:38] LABS: BUN/Creatinine Ratio 15.6; Bilirubin, Total 0.3 mg/dL (0.2-1.0); CRP High Sensitivity 2.39 mg/dL (< 0.3); Total Protein 5.7 g/dL (6.4-8.2)
[2020-06-04] MEDS: BUDESONIDE (INHALATION) 180 MCG IH IN SCH ×2 (09:10→21:37)
[2020-06-04] MEDS: CHOLECALCIFEROL (VITD3) 2,000 UNIT CAP/TAB PO SCH (10:00)
[2020-06-04] MEDS: AZITHROMYCIN 500MG/ 250ML 250 ML IV SCH (10:45)
[2020-06-04] MEDS: ZINC SULFATE 220mg CAP or TAB PO SCH (10:45)
[2020-06-04] MEDS: ASCORBIC ACID 1,000 MG TAB PO SCH (10:45)
[2020-06-04] MEDS: PANTOPRAZOLE 40 MG TAB PO SCH (10:45)
[2020-06-04] MEDS: cefTRIAXone 1GM/50ML D5W 50 ML IV SCH (10:45)
[2020-06-04] MEDS: SODIUM CHLORIDE 0.9% 1,000 ML IV SCH ×2 (10:45→21:15)
[2020-06-04] MEDS: ENOXAPARIN SOD 30 MG/0.3 ML SYRINGE SC SCH ×2 (10:46→22:04)
[2020-06-04 12:18] LABS: Lactic Acid w/Reflex 2.4 mmol/L (0.4-2.0)
[2020-06-04 16:00] VITALS: BP 148/72
[2020-06-05] VITALS: BP_SYST 133; BP_DIAS 61; BP_DIAS 67
[2020-06-05] MEDS: BUDESONIDE (INHALATION) 180 MCG IH IN SCH (06:19)
[2020-06-05] MEDS: ALBUTEROL SULF HFA 90MCG INH 200DOSE IN PRN (06:20)
[2020-06-05] MEDS: ACCU-CHEK COMFORT CURVE STRIP VI SCH ×4 (06:26→22:44)
[2020-06-05] MEDS: InsuLIN REG 1unit/0.01ml Soln (100units/ml) SC SCH ×4 (06:27→22:36)
[2020-06-05 08:00] VITALS: BP 148/68
[2020-06-05 08:12] LABS: BUN/Creatinine Ratio 16.6; Bilirubin, Total 0.5 mg/dL (0.2-1.0); Calcium 7.1 mg/dL (8.5-10.1); Potassium 4.3 mmol/L (3.5-5.1); Total Protein 5.8 g/dL (6.4-8.2)
[2020-06-05 08:16] LABS: Albumin 1.9 g/dL (3.4-5.0)
[2020-06-05] MEDS: ZINC SULFATE 220mg CAP or TAB PO SCH (11:33)
[2020-06-05] MEDS: AZITHROMYCIN 500MG/ 250ML 250 ML IV SCH (11:33)
[2020-06-05] MEDS: ASCORBIC ACID 1,000 MG TAB PO SCH (11:34)
[2020-06-05] MEDS: PANTOPRAZOLE 40 MG TAB PO SCH (11:34)
[2020-06-05] MEDS: CHOLECALCIFEROL (VITD3) 2,000 UNIT CAP/TAB PO SCH (11:34)
[2020-06-05] MEDS: ENOXAPARIN SOD 30 MG/0.3 ML SYRINGE SC SCH ×2 (11:34→22:44)
[2020-06-05] MEDS ORDERED: SODIUM CHL 0.9% 1000 ML BAG XX ONE (11:45)
[2020-06-05] MEDS ORDERED: CATHFLO ACTIVASE (ALTEPLASE) 2 MG VIAL IV ONE (12:45)
[2020-06-05] MEDS ORDERED: BUMETANIDE 2.5mg/10ml (0.25 mg/ml) INJ IV ONE (13:00)
[2020-06-05 16:00] VITALS: BP 148/76
[2020-06-05] MEDS ORDERED: REMDESIVIR PER PHARMACY 0 ML IV SCH (17:15)
[2020-06-05] MEDS: cefTRIAXone 1GM/50ML D5W 50 ML IV SCH (17:18)
[2020-06-05] MEDS ORDERED: REMDESIVIR 200 MG in NS 210ml LOADING DOSE ADULT IV ONE (20:00)
[2020-06-06] VITALS (7 sets, daily range): BP systolic 137–163; BP diastolic 66–94
[2020-06-06] MEDS ORDERED: LORazepam 0.5 MG TAB PO PRN (06:30)
[2020-06-06] MEDS: InsuLIN REG 1unit/0.01ml Soln (100units/ml) SC SCH ×4 (06:32→21:24)
[2020-06-06] MEDS: ACCU-CHEK COMFORT CURVE STRIP VI SCH ×4 (06:33→21:27)
[2020-06-06] MEDS: BUDESONIDE (INHALATION) 180 MCG IH IN SCH ×3 (07:03→19:45)
[2020-06-06 07:22] LABS: Magnesium 2.5 mg/dL (1.6-2.6); Potassium 4.3 mmol/L (3.5-5.1)
[2020-06-06 07:33] LABS: BUN/Creatinine Ratio 16.1; Bilirubin, Total 0.5 mg/dL (0.2-1.0); CRP High Sensitivity 6.41 mg/dL (< 0.3); Total Protein 6.1 g/dL (6.4-8.2)
[2020-06-06] MEDS: cefTRIAXone 1GM/50ML D5W 50 ML IV SCH (09:05)
[2020-06-06] MEDS: ASCORBIC ACID 1,000 MG TAB PO SCH (09:06)
[2020-06-06] MEDS: ENOXAPARIN SOD 30 MG/0.3 ML SYRINGE SC SCH ×2 (09:06→21:26)
[2020-06-06] MEDS: ZINC SULFATE 220mg CAP or TAB PO SCH (09:06)
[2020-06-06] MEDS: AZITHROMYCIN 500MG/ 250ML 250 ML IV SCH (09:06)
[2020-06-06] MEDS: PANTOPRAZOLE 40 MG TAB PO SCH (09:06)
[2020-06-06] MEDS: CHOLECALCIFEROL (VITD3) 2,000 UNIT CAP/TAB PO SCH (09:06)
[2020-06-06] MEDS ORDERED: HYDROmorphone HCL 2 MG/ML VL IV ONE ×2 (12:30→14:00)
[2020-06-06] MEDS ORDERED: REMDESIVIR 200 MG in NS 210ml LOADING DOSE ADULT IV ONE (15:00)
[2020-06-06] MEDS ORDERED: REMDESIVIR 100 MG in SODIUM CHL 0.9% 250 ML IV SCH (15:00)
[2020-06-06] MEDS: ALBUTEROL SULF HFA 90MCG INH 200DOSE IN PRN (19:45)
[2020-06-07] VITALS: BP 148/90
[2020-06-07] MEDS: InsuLIN REG 1unit/0.01ml Soln (100units/ml) SC SCH ×4 (06:15→22:10)
[2020-06-07] MEDS: ACCU-CHEK COMFORT CURVE STRIP VI SCH ×4 (06:19→22:09)
[2020-06-07 06:31] LABS: Basophils # (auto) 0 10 ^3/uL (0-0.2); Basophils % (auto) 0.3 % (0.0-2.0); Eosinophils # (auto) 0.1 10 ^3/uL (0-0.8); Eosinophils % (auto) 1.1 % (0.0-7.0); Hematocrit 41.5 % (41.0-53.0); Lymphocytes # (auto) 0.2 10 ^3/uL (0.4-5.4); Lymphocytes % (auto) 2.3 % (10.0-50.0); Mean Corpuscular Hemoglobin 29.6 pg (28.0-32.0); Mean Corpuscular Hgb Conc. 33.8 g/dL (32.0-36.0); Mean Corpuscular Volume 87.6 fL (80.0-100.0); Monocytes # (auto) 0.3 10 ^3/uL (0-1.3); Monocytes % (auto) 2.9 % (0.0-12.0); Neutrophils # (auto) 8.7 10 ^3/uL (1.6-8.6); Neutrophils % (auto) 93.4 % (37.0-80.0); Nucleated Red Blood Cells % 0.2 %; Red Blood Cells 4.74 10^6/uL (4.5-5.90); Red Cell Distribution Width 16.6 % (11.8-14.3); White Blood Cell 9.3 10^3/uL (4.4-10.8)
[2020-06-07 06:46] LABS: Alanine Aminotransferase 41 U/L (16-61); Alkaline Phosphatase 268 U/L (45-117); Aspartate Aminotransferase 91 U/L (15-37); Bilirubin, Total 0.4 mg/dL (0.2-1.0); GFR African American 8 mL/min; GFR Non-African American 7 mL/min; Total Protein 6.4 g/dL (6.4-8.2)
[2020-06-07 06:51] LABS: Sodium 138 mmol/L (136-145)
[2020-06-07 06:52] LABS: Anion Gap 15 (5-15); BUN/Creatinine Ratio 15.6; Calcium 6.9 mg/dL (8.5-10.1); Carbon Dioxide 20 mmol/L (21-32); Chloride 103 mmol/L (98-107); Glucose 196 mg/dL (74-106); Potassium 4.7 mmol/L (3.5-5.1)
[2020-06-07 06:53] LABS: Blood Urea Nitrogen 130 mg/dL (7-18)
[2020-06-07 07:31] LABS: Platelet Count (auto) 78 10^3/uL (140-450)
[2020-06-07] MEDS: ALBUTEROL SULF HFA 90MCG INH 200DOSE IN PRN ×2 (07:45→20:13)
[2020-06-07] MEDS: BUDESONIDE (INHALATION) 180 MCG IH IN SCH ×2 (07:45→20:13)
[2020-06-07 08:00] VITALS: BP 152/65
[2020-06-07] MEDS: ASCORBIC ACID 1,000 MG TAB PO SCH (09:34)
[2020-06-07] MEDS: cefTRIAXone 1GM/50ML D5W 50 ML IV SCH (09:34)
[2020-06-07] MEDS: CHOLECALCIFEROL (VITD3) 2,000 UNIT CAP/TAB PO SCH (09:34)
[2020-06-07] MEDS: ZINC SULFATE 220mg CAP or TAB PO SCH (09:34)
[2020-06-07] MEDS: AZITHROMYCIN 500MG/ 250ML 250 ML IV SCH (09:35)
[2020-06-07] MEDS: PANTOPRAZOLE 40 MG TAB PO SCH (09:35)
[2020-06-07] MEDS: ENOXAPARIN SOD 30 MG/0.3 ML SYRINGE SC SCH (09:35)
[2020-06-07] MEDS ORDERED: REMDESIVIR 100 MG in SODIUM CHL 0.9% 250 ML IV SCH (15:00)
[2020-06-07 16:00] VITALS: BP 150/75
[2020-06-07 16:30] VITALS: BP 150/75
[2020-06-07 16:48] VITALS: BP 143/69
[2020-06-07] MEDS: ERGOCALCIFEROL 50,000 UNIT(1.25MG) CAP PO SCH (16:50)
[2020-06-07 17:42] VITALS: BP 135/65
[2020-06-07] MEDS ORDERED: BUMETANIDE 2.5mg/10ml (0.25 mg/ml) INJ IV ONE (20:00)
[2020-06-07] MEDS: LORazepam 0.5 MG TAB PO PRN (23:15)
[2020-06-08 00:24] VITALS: BP 137/69
[2020-06-08] MEDS: LORazepam 0.5 MG TAB PO PRN (05:29)
[2020-06-08 06:18] LABS: Basophils # (auto) 0 10 ^3/uL (0-0.2); Basophils % (auto) 0.1 % (0.0-2.0); Eosinophils # (auto) 0.1 10 ^3/uL (0-0.8); Eosinophils % (auto) 1.6 % (0.0-7.0); Hemoglobin 12.7 g/dL (13.5-17.5); Lymphocytes # (auto) 0.2 10 ^3/uL (0.4-5.4); Lymphocytes % (auto) 2.5 % (10.0-50.0); Mean Corpuscular Hemoglobin 29.3 pg (28.0-32.0); Mean Corpuscular Hgb Conc. 33.4 g/dL (32.0-36.0); Mean Corpuscular Volume 87.8 fL (80.0-100.0); Monocytes # (auto) 0.3 10 ^3/uL (0-1.3); Neutrophils # (auto) 8.4 10 ^3/uL (1.6-8.6); Neutrophils % (auto) 92.8 % (37.0-80.0); Nucleated Red Blood Cells % 0.1 %; Platelet Count (auto) 75 10^3/uL (140-450); Red Blood Cells 4.33 10^6/uL (4.5-5.90); Red Cell Distribution Width 16.8 % (11.8-14.3); White Blood Cell 9.1 10^3/uL (4.4-10.8)
[2020-06-08 06:29] LABS: Albumin 2.2 g/dL (3.4-5.0); Calcium 7.4 mg/dL (8.5-10.1); Potassium 4.7 mmol/L (3.5-5.1)
[2020-06-08] MEDS: ACCU-CHEK COMFORT CURVE STRIP VI SCH ×2 (06:31→11:53)
[2020-06-08 06:34] LABS: BUN/Creatinine Ratio 16.7; Bilirubin, Total 0.4 mg/dL (0.2-1.0); Total Protein 6.6 g/dL (6.4-8.2)
[2020-06-08] MEDS: InsuLIN REG 1unit/0.01ml Soln (100units/ml) SC SCH ×2 (06:35→11:52)
[2020-06-08 06:49] LABS: INR 1.22 (0.9-1.15)
[2020-06-08 08:00] VITALS: BP 160/84
[2020-06-08] MEDS ORDERED: CATHFLO ACTIVASE (ALTEPLASE) 2 MG VIAL IV ONE (08:00)
[2020-06-08] MEDS: PANTOPRAZOLE 40 MG TAB PO SCH (08:34)
[2020-06-08] MEDS: CHOLECALCIFEROL (VITD3) 2,000 UNIT CAP/TAB PO SCH (08:34)
[2020-06-08] MEDS: cefTRIAXone 1GM/50ML D5W 50 ML IV SCH (08:34)
[2020-06-08] MEDS: ASCORBIC ACID 1,000 MG TAB PO SCH (08:34)
[2020-06-08] MEDS: ZINC SULFATE 220mg CAP or TAB PO SCH (08:35)
[2020-06-08] MEDS: AZITHROMYCIN 500MG/ 250ML 250 ML IV SCH (09:58)
[2020-06-08] MEDS ORDERED: BUMETANIDE 2.5mg/10ml (0.25 mg/ml) INJ IV SCH (10:00)
[2020-06-08] MEDS: BUDESONIDE (INHALATION) 180 MCG IH IN SCH (10:00)
[2020-06-08] MEDS ORDERED: HYDROmorphone HCL 2 MG/ML VL IV PRN (11:15)
[2020-06-08] MEDS ORDERED: Glucerna Carbsteady SHAKE Vanilla 8oz PO SCH (12:00)
[2020-06-08] MEDS ORDERED: APIXABAN 5 MG TAB PO ONE (13:36)
[2020-06-08] MEDS ORDERED: SODIUM BICARBONATE 8.4 % INJ 50ML VIAL IV ONE (16:34)
[2020-06-08] MEDS ORDERED: SODIUM BICARBONATE 8.4% INJ 50ML SYRINGE IV ONE (16:36)
[2020-06-08] MEDS ORDERED: EPINEPHrine HCL 1 MG/10 ML SYRG IV ONE (16:36)
[2020-06-08] MEDS ORDERED: CALCIUM CHLOR(10%) 100MG/ML 10ML SYRINGE IV ONE (16:36)
[2020-06-08] MEDS ORDERED: APIXABAN 5 MG TAB PO SCH (22:00)
[2020-06-15] MEDS ORDERED: APIXABAN 5 MG TAB PO SCH (10:00)
== END 2020-06-08 16:37 | DRG 871 ==
LOC: EDBD 11:56 → ER 11:56 → EDSEX 11:56 → TELE 11:57 → TELE-WESTW 05-31 21:08
PROVIDERS: ADMIT Student in an Organized Health Care Education/Training Program; ATTEND Internal Medicine
PROC: 06HY33Z Insertion of Infusion Device into Lower Vein, Percutaneous Approach (ICD-10-PCS; 2020-05-30)
PROC: XW033E5 Introduction of Remdesivir Anti-infective into Peripheral Vein, Percutaneous Approach, New Technology Group 5 (ICD-10-PCS; 2020-06-01)
PROC: XW033H5 Introduction of Tocilizumab into Peripheral Vein, Percutaneous Approach, New Technology Group 5 (ICD-10-PCS; 2020-06-01)
PROC: XW033H5 Introduction of Tocilizumab into Peripheral Vein, Percutaneous Approach, New Technology Group 5 (ICD-10-PCS; 2020-06-01)
PROC: 5A1D70Z Performance of Urinary Filtration, Intermittent, Less than 6 Hours Per Day (ICD-10-PCS; 2020-06-02)
PROC: 05HD33Z Insertion of Infusion Device into Right Cephalic Vein, Percutaneous Approach (ICD-10-PCS; 2020-06-05)
PROC: B54MZZA Ultrasonography of Right Upper Extremity Veins, Guidance (ICD-10-PCS; 2020-06-05)
PROC: 5A1D70Z Performance of Urinary Filtration, Intermittent, Less than 6 Hours Per Day (ICD-10-PCS; 2020-06-06)
PROC: XW13325 Transfusion of Convalescent Plasma (Nonautologous) into Peripheral Vein, Percutaneous Approach, New Technology Group 5 (ICD-10-PCS; principal; 2020-06-07)
PROC: 5A12012 Performance of Cardiac Output, Single, Manual (ICD-10-PCS; 2020-06-08)
PROC: 06HY33Z Insertion of Infusion Device into Lower Vein, Percutaneous Approach (ICD-10-PCS; 2020-06-08)
DX: A41.89 Other specified sepsis (principal); U07.1 COVID-19; J96.01 Acute respiratory failure with hypoxia; N17.0 Acute kidney failure with tubular necrosis; E43 Unspecified severe protein-calorie malnutrition; J12.82 Pneumonia due to coronavirus disease 2019; J44.1 Chronic obstructive pulmonary disease with (acute) exacerbation; K86.1 Other chronic pancreatitis; E87.1 Hypo-osmolality and hyponatremia; I13.0 Hypertensive heart and chronic kidney disease with heart failure and stage 1 through stage 4 chronic kidney disease, or unspecified chronic kidney disease; J44.0 Chronic obstructive pulmonary disease with (acute) lower respiratory infection; J98.11 Atelectasis; Z68.42 Body mass index [BMI] 45.0-49.9, adult; N39.0 Urinary tract infection, site not specified; I82.401 Acute embolism and thrombosis of unspecified deep veins of right lower extremity; T82.514A Breakdown (mechanical) of infusion catheter, initial encounter; Y71.2 Prosthetic and other implants, materials and accessory cardiovascular devices associated with adverse incidents; R65.20 Severe sepsis without septic shock; I50.9 Heart failure, unspecified; E66.01 Morbid (severe) obesity due to excess calories; E78.5 Hyperlipidemia, unspecified; D89.839 Cytokine release syndrome, grade unspecified; D69.6 Thrombocytopenia, unspecified; E11.22 Type 2 diabetes mellitus with diabetic chronic kidney disease; E55.9 Vitamin D deficiency, unspecified; F41.9 Anxiety disorder, unspecified; N40.0 Benign prostatic hyperplasia without lower urinary tract symptoms; Z79.51 Long term (current) use of inhaled steroids; Z79.899 Other long term (current) drug therapy; Z83.3 Family history of diabetes mellitus; Z89.429 Acquired absence of other toe(s), unspecified side; Z99.2 Dependence on renal dialysis; I46.9 Cardiac arrest, cause unspecified; N18.32 Chronic kidney disease, stage 3b
CPT/HCPCS: 36415; 36600; 71045; 76775; 80053; 80061; 80074; 81001; 82306; 82728; 82805; 82962; 83036; 83540; 83550; 83605; 83615; 83735; 83880; 84443; 84484; 85025; 85379; 85610; 86141; 86850; 86900; 86901; 87040; 87426; 90935; 92950; 93970; 94640; 97163; 99291; G0378; J0696; J1100; J1642; J1815